=== PATIENT | male | born 1985 | race Caucasian/White ===

== ENCOUNTER 2020-05-17 09:40 | Outpatient (CLI) | payer BC ==
--- NOTE | 2020-05-17 10:12 | RAD ---
LEFT WRIST 3 VIEWS: HISTORY: Wrist pain. FINDINGS: Carpals appear normally aligned. No evidence of fracture. Distal radius and ulna unremarkable. IMPRESSION: No acute finding. POS: [id number]
== END 2020-05-17 09:41 | disposition home or self-care (01) ==
LOC: BICRAD 09:40
PROVIDERS: ATTEND Family Medicine
DX: M25.532 Pain in left wrist (principal)
CPT/HCPCS: 36415; 80053; 80061; 82043; 83036; 84443; 85025